=== PATIENT | female | born 1995 | race Caucasian/White ===

== ENCOUNTER 2020-10-29 21:52 | Outpatient (CLI) | payer OTHER ==
[2020-10-29] MEDS ORDERED: PRENATAL TABLE1 EAC1 PO (22:05)
== END 2020-10-30 16:46 | disposition home or self-care (01) ==
LOC: OBS/DEL 21:52
PROVIDERS: ATTEND Obstetrics & Gynecology
DX: O26.892 Other specified pregnancy related conditions, second trimester (principal); R10.2 Pelvic and perineal pain

== ENCOUNTER → 2020-11-11 | Outpatient (CLI) | payer OTHER ==
[~2020-11-11] MED LIST: PRENATAL TABLE1 EAC1 PO
== END | disposition home or self-care (01) ==
LOC: PRENATAL 08:00
PROVIDERS: ATTEND Obstetrics & Gynecology Maternal & Fetal Medicine
DX: O26.872 Cervical shortening, second trimester (principal); O35.0XX1 Maternal care for (suspected) central nervous system malformation in fetus, fetus 1; O35.3XX1 Maternal care for (suspected) damage to fetus from viral disease in mother, fetus 1; O98.512 Other viral diseases complicating pregnancy, second trimester; Z36.89 Encounter for other specified antenatal screening; Z3A.23 23 weeks gestation of pregnancy

== ENCOUNTER 2020-12-17 16:06 | Outpatient (CLI) | payer OTHER | END 2020-12-18 11:13 | disposition home or self-care (01) | LOC: OBS/DEL 16:06 | PROVIDERS: ATTEND Obstetrics & Gynecology | DX: O16.3 Unspecified maternal hypertension, third trimester (principal); Z3A.28 28 weeks gestation of pregnancy ==

== ENCOUNTER 2021-01-07 12:47 | Inpatient (IN) | payer OTHER ==
[~2021-01-07] VITALS: Ht 157.5 cm; Wt 74.8 kg
== END 2021-01-09 09:40 | disposition home or self-care (01) | DRG 807 ==
LOC: LDR 12:47
PROVIDERS: ADMIT Obstetrics & Gynecology; ATTEND Obstetrics & Gynecology
PROC: 4A1HXFZ Monitoring of Products of Conception, Cardiac Rhythm, External Approach (ICD-10-PCS; 2021-01-07)
PROC: 10E0XZZ Delivery of Products of Conception, External Approach (ICD-10-PCS; principal; 2021-01-08)
DX: O36.4XX0 Maternal care for intrauterine death, not applicable or unspecified (principal); Z37.1 Single stillbirth; Z3A.31 31 weeks gestation of pregnancy; Z20.822 Contact with and (suspected) exposure to COVID-19

== ENCOUNTER 2024-06-29 15:06 | Outpatient (CLI) | payer OTHER ==
[~2024-06-29 15:06] MED LIST changes: +PRENATAL CAPLE1 EAC1 PO
== END 2024-06-29 15:07 | disposition home or self-care (01) ==
LOC: PRENATAL 15:06
PROVIDERS: ATTEND Obstetrics & Gynecology Maternal & Fetal Medicine
DX: O26.849 Uterine size-date discrepancy, unspecified trimester (principal); O36.8199 Decreased fetal movements, unspecified trimester, other fetus; O36.4XX0 Maternal care for intrauterine death, not applicable or unspecified; Z3A.32 32 weeks gestation of pregnancy

== ENCOUNTER 2024-07-28 09:36 | Outpatient (CLI) | payer OTHER | END 2024-07-28 09:40 | disposition home or self-care (01) | LOC: PRENATAL 09:36 | PROVIDERS: ATTEND Obstetrics & Gynecology Maternal & Fetal Medicine | DX: O26.849 Uterine size-date discrepancy, unspecified trimester (principal); O36.8199 Decreased fetal movements, unspecified trimester, other fetus; O36.4XX0 Maternal care for intrauterine death, not applicable or unspecified; Z3A.36 36 weeks gestation of pregnancy ==

== ENCOUNTER 2024-08-07 06:17 | Inpatient (IN) | payer OTHER ==
[~2024-08-07] VITALS: Ht 157.5 cm; Wt 77.6 kg
[2024-08-07 06:24] VITALS: BP 123/86
[2024-08-07 06:54] LABS: HEMATOCRIT 35.2 % (36.0-45.00); HEMOGLOBIN 12.1 g/dL (12.0-15.00); MEAN CELL VOLUME 89.4 fL (80.00-100.00); MEAN CORPUSCULAR HEMOGLOBIN 30.8 pg (27.00-32.0); MEAN CORPUSCULAR HGB CONC 34.5 g/dl (32.0-36.0); PLATELET COUNT 141 K/uL (150-450); RED BLOOD COUNT 3.94 M/uL (4.00-6.00); RED CELL DISTRIBUTION WIDTH 14.2 % (11.5-14.5)
[2024-08-07 07:00] LABS: PH,URINE 6.5 (5.0-8.0); URINE APPEARANCE Clear; URINE BILIRRUBIN Negative (NEGATIVE); URINE BLOOD Small; URINE COLOR Yellow; URINE GLUCOSE Negative (NEGATIVE); URINE KETONE Negative (NEGATIVE); URINE LEUKOCYTE Trace; URINE NITRATE Negative; URINE PROTEIN Negative (NEGATIVE); URINE UROBILINOGEN 0.2 E.U./dl
[2024-08-07 07:01] LABS: URINE BACTERIA 1477.6 uL (0.0-1933); URINE EPITHELIAL CELLS 55.1 uL (0.0-38.8); URINE RBC 106.5 uL (0.0-20.8); URINE WBC 18.3 uL (0.0-23.2)
[2024-08-07 07:29] LABS: URINE CAST 0.76 uL (0.0-1.40)
[2024-08-07 07:30] LABS: INR 0.96; PARTIAL THROMBOPLASTIN TIME 27.9 SECONDS (22.0-34.0); PROTHROMBIN TIME 10.5 SECONDS (9.0-11.5)
[2024-08-07 07:40] VITALS: BP 133/82
[2024-08-07 07:41] LABS: ALBUMIN 2.8 gm/dL (3.4-5.0); BILIRUBIN TOTAL 0.31 mg/dL (0.3-1.2); CALCIUM 9.3 mg/dL (8.5-10.1); CREATININE SERUM 0.52 mg/dL (0.55-1.02); GFR 138.46; GLOBULINA 3.3 G/DL (2.4-3.5); POTASSIUM 3.77 mEq/L (3.5-5.1); TOTAL PROTEIN 6.1 gm/dL (6.4-8.2)
[2024-08-07] MEDS ORDERED: MISOPROSTOL 25 MCG/4 ML GEL.W.APPL VAG ONE (08:30)
[2024-08-07 11:26] VITALS: BP 121/79
[2024-08-07 15:32] VITALS: BP 111/75
[2024-08-07 23:44] VITALS: BP 134/80
[2024-08-08] VITALS (7 sets, daily range): BP systolic 99–134; BP diastolic 58–80; O2SAT 99
[2024-08-08] MEDS ORDERED: OXYTOCIN 500 ML IV SCH (08:45)
[2024-08-08] MEDS ORDERED: MORPHINE SULFATE 4 MG/ML VIAL IV STA (23:04)
[2024-08-09] MEDS ORDERED: IBUprofen 400 MG TABLET PO PRN (03:15)
[2024-08-09] MEDS ORDERED: OXYTOCIN 10 UNITS/ML VIAL IM STA (04:30)
[2024-08-09] MEDS ORDERED: OXYTOCIN 1,000 ML IV SCH (04:30)
[2024-08-09] MEDS ORDERED: CHLORHEXIDINE GLUCONATE 120 ML BOTTLE TP SCH (04:30)
[2024-08-09] MEDS ORDERED: ERYTHROMYCIN BASE OPHT 1GM EACH TUBE OP ONE (04:30)
[2024-08-09 06:10] VITALS: BP 130/80
[2024-08-09 06:38] LABS: HEMATOCRIT 35.2 % (36.0-45.00); HEMOGLOBIN 12.2 g/dL (12.0-15.00); MEAN CELL VOLUME 89.6 fL (80.00-100.00); MEAN CORPUSCULAR HGB CONC 34.6 g/dl (32.0-36.0); PLATELET COUNT 143 K/uL (150-450); RED BLOOD COUNT 3.93 M/uL (4.00-6.00)
[2024-08-09 08:14] VITALS: BP 109/70
[2024-08-09 16:00] VITALS: BP 119/80
[2024-08-10] VITALS: BP 133/70
[2024-08-10 08:26] VITALS: BP 124/81
[2024-08-10 16:00] VITALS: BP 121/79
[2024-08-11 01:00] VITALS: BP 129/84
[2024-08-11 08:00] VITALS: BP 135/89
== END 2024-08-11 12:16 | disposition home or self-care (01) | DRG 807 ==
LOC: LDR 06:17 → OB/GYN 08-09 05:47
PROVIDERS: ADMIT Obstetrics & Gynecology; ATTEND Obstetrics & Gynecology
PROC: 3E0P7VZ Introduction of Hormone into Female Reproductive, Via Natural or Artificial Opening (ICD-10-PCS; 2024-08-07)
PROC: 4A1HXCZ Monitoring of Products of Conception, Cardiac Rate, External Approach (ICD-10-PCS; 2024-08-07)
PROC: 3E033VJ Introduction of Other Hormone into Peripheral Vein, Percutaneous Approach (ICD-10-PCS; 2024-08-08)
PROC: 10E0XZZ Delivery of Products of Conception, External Approach (ICD-10-PCS; principal; 2024-08-09)
PROC: 0UQMXZZ Repair Vulva, External Approach (ICD-10-PCS; 2024-08-09)
DX: O71.82 Other specified trauma to perineum and vulva (principal); Z37.0 Single live birth; Z3A.37 37 weeks gestation of pregnancy; Z20.822 Contact with and (suspected) exposure to COVID-19